=== PATIENT | male | born 1935 | race Caucasian/White ===

== ENCOUNTER 2017-01-12 16:26 | Emergency (ER) | payer OTHER ==
[2017-01-12 16:53] VITALS: BMI 21.7
--- NOTE | 2017-01-12 17:16 | PDOC ---
History of Present Illness - General Chief Complaint: Injury Stated Complaint: FALL Time Seen by Provider: 01/12/17 16:56 History Source: Family, Skilled Nursing Records Exam Limitations: Dementia - History of Present Illness Initial Comments: 01/12/17 17:11 81y M hx of htn, dementiam, unstead gait with frequent falls, psychosis presents sp witnessed fall per EMS as he was getting out of a wheel chair. No reported LOC. The pt has severe dementia and is unable to give much of a history , denies any pain currently to his head, n/v, vision changes, neck pain, chest pain, back pain. pt on ASA Past History - Past Medical History Allergies/Adverse Reactions: Allergies Allergy/AdvReac Type Severity Reaction Status Date / Time No Known Allergies Allergy Verified 01/12/17 16:45 Home Medications: Ambulatory Orders Acetaminophen [Tylenol] 650 mg PO Q6H PRN 01/12/17 Allopurinol [Zyloprim -] 100 mg PO BID 01/12/17 Aspirin [ASA -] 81 mg PO DAILY 01/12/17 Carbamazepine [Tegretol -] 200 mg PO Q12H 01/12/17 Cholecalciferol (Vitamin D3) [Vitamin D3] 2,000 unit PO DAILY 01/12/17 Clonazepam 2 mg PO DAILY 01/12/17 Haloperidol [Haldol -] 5 mg PO DAILY 01/12/17 Olanzapine [Zyprexa] 30 mg PO DAILY 01/12/17 Cardiac Disorders: Yes Dementia: Yes Psychiatric Problems: Yes (PSYCHOSIS) Seizures: Yes Other medical history: CHRONIC GOUT. REPEATED FALLS. - Psycho/Social/Smoking Cessation Hx Anxiety: No Suicidal Ideation: No Smoking History: Unknown if ever smoked Hx Alcohol Use: No Drug/Substance Use Hx: No Substance Use Type: None Review of Systems - Review of Systems Able to Perform ROS?: No *Physical Exam - Vital Signs Last Vital Signs Temp Pulse Resp BP Pulse Ox 98.1 F 91 H 18 116/82 98 01/12/17 16:35 01/12/17 16:35 01/12/17 16:35 01/12/17 16:35 01/12/17 16:35 - Physical Exam Comments: 01/12/17 17:15 GENERAL: The patient is awake, alert x 1 Nontoxic - in no acute distress. HEAD: Normocephalic, ~3cm laceration on posterior occiput without any crepitus, stepoff, active bleeding EYES: extraocular movements intact, sclera anicteric, conjunctiva clear. ENT: Normal voice, Moist mucous membranes. NECK: Normal range of motion, supple LUNGS: Breath sounds equal, clear to auscultation bilaterally. No wheezes, no rhonchi, no rales. HEART: Regular rate and rhythm, normal S1 and S2 without murmur, rub or gallop. ABDOMEN: Soft, nontender, normoactive bowel sounds. No guarding, no rebound. . No CVA tenderness EXTREMITIES: Normal range of motion, no edema. No clubbing or cyanosis. No cords, erythema, or tenderness. NEUROLOGICAL: No facial assymetry, Normal speech, confused SKIN: Warm, Dry, normal turgor, Back: No midline tenderness to the cervical, thoracic or lumbar spine Musculoskelatal: FROM of b/l shoulders, elbows, wrist. FROM of hips, knees, ankles - No signs of ecchymosis, erythema, or crepitus noted on palpation extremities, chest wall, clavicals, ribs, back. Procedures - Consent Consent obtained: Verbal - Laceration/Wound Repair Posterior Head Wound Length: 2.6 to 5.0 cm Wound Explored: clean Wound's Depth, Shape: superficial Irrigated w/ Saline: Yes Wound Repaired With: [place] Number of Sutures: 4 ED Treatment Course - RADIOLOGY Radiology Studies Ordered: Category Date Time Status HEAD CT WITHOUT CONTRAST [CT] Stat CT Scan 01/12/17 17:08 Ordered Medical Decision Making - Medical Decision Making 01/12/17 17:17 shubham r/o fx with cthead and cspine will close with jorje after CT head 01/12/17 18:[address] and cspine negative for acute process lac closed with 4 jorje per the pt had tetnaus recently will dc/ the pt back to the [place] returnp recautions were discussed I discussed the physical exam findings, ancillary test results and final diagnoses with the patient. I answered all of the patient's questions. The patient was satisfied with the care received and felt comfortable with the discharge plan and treatment plan. The patient will call their primary care physician within 24 hours to arrange follow-up and will return to the Emergency Department with any new, persistent or worsening symptoms. *DC/Admit/Observation/Transfer Diagnosis at time of Disposition: Laceration of head Qualifiers: Encounter type: initial encounter Location of open wound of head: scalp Foreign body presence: without foreign body Qualified Code(s): S01.01XA - Laceration without foreign body of scalp, initial encounter - Discharge Dispostion Disposition: [facility] F[facility] Condition at time of disposition: Stable Admit: No - Patient Instructions Printed Discharge Instructions: DI for Closed Head Injury, DI for Laceration Repair -- [facility] Additional Instructions: Return to the emergency department immediately with ANY new, persistent or worsening symptoms including any redness, bleeding, purulent discharge, swelling or other concerns. Keep the area clean and dry for 48 hours. Afterwards he may clean gently with soap and water. Apply bacitracin twice a day. Return in 10-14 days for suture removal. You MUST call and follow up with your doctor tomorrow for further evaluation of your symptoms. Results were discussed with you. Please make sure your doctor reviews the results of your emergency evaluation. Print Language: [place]
[2017-01-12] MEDS ORDERED: DIPHTH,PERTUSS(ACELL),TET VAC 0.5 ML VIAL IM ONE (17:50)
[2017-01-12 20:13] VITALS: BP 135/80; PULSE 87; TEMP 98.3
== END 2017-01-12 20:40 ==
LOC: JER 16:26
PROC: 3E0234Z Introduction of Serum, Toxoid and Vaccine into Muscle, Percutaneous Approach (ICD-10-PCS; principal; 2017-01-12)
PROC: 0HQ0XZZ Repair Scalp Skin, External Approach (ICD-10-PCS; 2017-01-12)
DX: S01.01XA Laceration without foreign body of scalp, initial encounter (principal); W05.0XXA Fall from non-moving wheelchair, initial encounter; Z91.81 History of falling; Y93.89 Activity, other specified; Y92.128 Other place in nursing home as the place of occurrence of the external cause; I10 Essential (primary) hypertension; F03.90 Unspecified dementia, unspecified severity, without behavioral disturbance, psychotic disturbance, mood disturbance, and anxiety; F28 Other psychotic disorder not due to a substance or known physiological condition; M10.9 Gout, unspecified; R26.81 Unsteadiness on feet
CPT/HCPCS: 12002-25; 70450-TC; 72125-TC; 90471; 90715; 99282-25

== ENCOUNTER 2017-05-29 21:38 | Emergency (ER) | payer OTHER, BC ==
--- NOTE | 2017-05-29 21:55 | PDOC ---
History of Present Illness - General Chief Complaint: Injury Stated Complaint: FALL Time Seen by Provider: 05/29/17 21:47 - History of Present Illness Initial Comments: 05/30/17 01:31 82M hx of htn, advanced dementia, unsteady gait with frequent falls and psychosis brought to the ED by EMS with a left upper forehead laceration after found on the floor of his assisted room following a fall head first. No witness to the fall. Patient reports no LOC. Past History - Past Medical History Allergies/Adverse Reactions: Allergies Allergy/AdvReac Type Severity Reaction Status Date / Time No Known Allergies Allergy Verified 05/29/17 22:29 Home Medications: Ambulatory Orders Acetaminophen [Tylenol] 650 mg PO Q6H PRN 01/12/17 Allopurinol [Zyloprim -] 100 mg PO BID 01/12/17 Carbamazepine [Tegretol -] 200 mg PO Q12H 01/12/17 Cholecalciferol (Vitamin D3) [Vitamin D3] 2,000 unit PO DAILY 01/12/17 Clonazepam 2 mg PO ASDIR 01/12/17 Haloperidol [Haldol -] 5 mg PO ASDIR 01/12/17 Olanzapine [Zyprexa] 15 mg PO ASDIR 01/12/17 Cardiac Disorders: Yes Dementia: Yes Psychiatric Problems: Yes (PSYCHOSIS) Seizures: Yes - Psycho/Social/Smoking Cessation Hx Anxiety: No Suicidal Ideation: No Smoking History: Unknown if ever smoked Hx Alcohol Use: No Drug/Substance Use Hx: No Substance Use Type: None Review of Systems - Review of Systems Able to Perform ROS?: No (Advanced dementia) *Physical Exam - Physical Exam General Appearance: Yes: Disheveled (patient looks spastic) Respiratory/Chest: positive: Lungs Clear, Normal Breath Sounds. negative: Respiratory Distress Cardiovascular: positive: Regular Rhythm, Regular Rate, S1, S2 Vascular Pulses: Dorsalis-Pedis (R): 2+, Doralis-Pedis (L): 2+ Gastrointestinal/Abdominal: positive: Normal Bowel Sounds, Flat, Soft Integumentary: positive: Normal Color, Dry, Warm, Other (2x 3.5-4.5cm lacerations on the upper frontal scalp) Neurologic: negative: Fully Oriented (Spastic neck and extremities) Procedures - Laceration/Wound Repair Left Upper Lateral Face Wound Length: 2.6 to 5.0 cm Wound Explored: clean, no foreign body present Wound's Depth, Shape: irregular Irrigated w/ Saline: Yes Anesthesia: 1% Lidocaine Wound Debrided: minimal Wound Repaired With: Sutures Suture Size/Type: 5:0 Number of Sutures: 7 Sterile Dressing Applied: Yes (+ bacitracin oitment) ED Treatment Course - LABORATORY CBC & Chemistry Diagram: 05/29/17 22:04 05/29/17 22:04 Medical Decision Making - Medical Decision Making 05/30/17 01:42 82M with pmh of dementia HTN, unsteady gait with hx of falls present with forhead laceration after fall. Patient evaluated for fall etiology with CBC, CMP and EKG. CT head and neck to r /o intracranial bleed/fracture, everything negative. LAceration repaired with 7 interrupted 5-0 suture points. Patient to be discharged back to assisted. Talked to Mrs Marly Li by phone to inform her with the plan. *DC/Admit/Observation/Transfer Diagnosis at time of Disposition: Laceration of head, Fall - Discharge Dispostion Condition at time of disposition: Good Admit: No
[2017-05-29 22:16] LABS: BASO % 0.5 % (0-2.0); EOS % 0.7 % (0-4.5); HEMATOCRIT 40.8 % (35.4-49); HEMOGLOBIN 13.7 GM/dL (11.7-16.9); LYMPH % 14.7 % (8-40); MCH 31.8 pg (25.7-33.7); MCHC 33.5 g/dl (32.0-35.9); MEAN CELL VOLUME 94.8 fl (80-96); MEAN PLT VOLUME 8.1 fl (7.5-11.1); MONO % 7.2 % (3.8-10.2); NEUT % 76.9 % (42.8-82.8); PLATELET COUNT 203 K/MM3 (134-434); RDW 14.7 % (11.9-15.9); WHITE BLOOD COUNT 6.5 K/mm3 (4.0-10.0)
[2017-05-29 22:20] VITALS: BP 121/55; PULSE 72; TEMP 97.6; BMI 23.8
[2017-05-29 22:42] LABS: ALBUMIN 3.4 g/dl (3.4-5.0); ANION GAP 6 (8-16); BILIRUBIN,TOTAL 0.3 mg/dL (0.2-1.0); BLOOD UREA NITROGEN 15 mg/dL (7-18); CALCIUM 9.3 mg/dL (8.5-10.1); CHLORIDE 103 mmol/L (98-107); CO2 31 mmol/L (21-32); CREATININE 0.9 mg/dL (0.7-1.3); GLUCOSE,RANDOM 87 mg/dL (74-106); POTASSIUM 4.6 mmol/L (3.5-5.1); SGOT/AST 20 U/L (15-37); SGPT/ALT 30 U/L (12-78); SODIUM 140 mmol/L (136-145); TOT PROT 6.8 g/dl (6.4-8.2)
[2017-05-29 22:43] LABS: ALK PHOS 132 U/L (45-117)
--- NOTE | 2017-05-30 01:04 | PDOC ---
Attending Attestation - Resident Resident Name: Brian Grayson - ED Attending Attestation I have performed the following: I have examined & evaluated the patient, The case was reviewed & discussed with the resident, I agree w/resident's findings & plan, Exceptions are as noted - HPI HPI: 05/30/17 00:59 This is an 82 yo M from [facility] who presents to the ER s/p unwitnessed fall with head trauma Pt sustained a laceration to the forehead No vomiting Pt is contracted Pt is unable to provide any additional history - Physicial Exam PE: 05/30/17 01:01 Left forehead laceration measuring 2cm (+) head turned to the left, contractures No abdominal tenderness No obvious deformities - Medical Decision Making 05/30/17 01:[address] Spine CT Laceration repair Pt is not taking anticoagulants Can be returned to [facility] as pt is not on anticoagulants
--- NOTE | 2017-05-30 13:48 | EKG ---
Test Reason : Blood Pressure : / mmHG Vent. Rate : 080 BPM Atrial Rate : 202 BPM P-R Int : 000 ms QRS Dur : 078 ms QT Int : 376 ms P-R-T Axes : 000 055 015 degrees QTc Int : 433 ms ATRIAL FIBRILLATION NONSPECIFIC T WAVE ABNORMALITY ABNORMAL ECG WHEN COMPARED WITH ECG OF 29-MAY-2017 23:40, NO SIGNIFICANT CHANGE WAS FOUND Confirmed by RAMONE BRIDGES MD ([id number]) on 05/30/2017 1:48:26 PM Referred By: Confirmed By:RAMONE BRIDGES MD
== END 2017-05-30 03:12 ==
LOC: JER 21:38
PROC: 0HQ1XZZ Repair Face Skin, External Approach (ICD-10-PCS; principal; 2017-05-29)
DX: S01.81XA Laceration without foreign body of other part of head, initial encounter (principal); W18.39XA Other fall on same level, initial encounter; Z91.81 History of falling; Y93.89 Activity, other specified; Y92.122 Bedroom in nursing home as the place of occurrence of the external cause; R26.81 Unsteadiness on feet; I10 Essential (primary) hypertension; F03.90 Unspecified dementia, unspecified severity, without behavioral disturbance, psychotic disturbance, mood disturbance, and anxiety
CPT/HCPCS: 12013; 36415; 70450-TC; 72125-TC; 80053; 85025; 93005; 93010; 99283-25

== ENCOUNTER 2017-08-30 21:47 | Emergency (ER) | payer OTHER, BC ==
--- NOTE | 2017-08-30 22:01 | PDOC ---
Attending Attestation - HPI HPI: 08/30/17 22:39 82 yo M from [facility] with a significant past medical history of advanced dementia and unsteady gait with frequent falls, who presents to the emergency department s/p mechanical fall from bed tonight. Pt sustained a laceration to the left upper forehead. As per spouse, pt is at baseline mental status with no new complaints. No F/C. No vomiting. Pt is unable to provide any additional history. - Physicial Exam PE: 08/30/17 23:15 GENERAL: Awake, (+) Pleasantly demented. in no acute distress HEAD: (+) 2 cm laceration to the left scalp with no active bleeding EYES: PERRLA, EOMI, sclera anicteric, conjunctiva clear ENT: Auricles normal inspection, nares patent, oropharynx clear without exudates. Moist mucosa NECK: Normal ROM, supple, no lymphadenopathy, JVD, or masses LUNGS: Breath sounds equal, clear to auscultation bilaterally. No wheezes, and no crackles HEART: (+) Irregularly irregular. normal S1 and S2, no murmurs, rubs or gallops ABDOMEN: Soft, nontender, normoactive bowel sounds. No guarding, no rebound. No masses EXTREMITIES: No edema. No clubbing or cyanosis. No cords, erythema, or tenderness NEUROLOGICAL: Cranial nerves II through XII grossly intact. SKIN: Warm, Dry, normal turgor, no rashes noted. <Trish Flynn - Last Filed: 08/30/17 23:15> - Resident Resident Name: Brian Grayson - ED Attending Attestation I have performed the following: I have examined & evaluated the patient, The case was reviewed & discussed with the resident, I agree w/resident's findings & plan, Exceptions are as noted - Medical Decision Making 08/30/17 22:01 I, Dr. Jody Lofton, DO, attest that this document has been prepared under my direction and personally reviewed by me in its entirety. I further attest, that it accurately reflects all work, treatment, procedures and medical decision -making performed by me. 08/30/17 22:47 a/p:82yo pleasantly demented male with closed head injury -mechanical fall out of bed -head laceration -hx of bleeding in the brain -head ct, c spine ct -laceration repair -family requesting to return to [place] 08/31/17 00:13 discussed head and c spine ct results with the patients . pt at baseline MS. Stable for d/c to home. Pt is DNR. Answered all quesitons. Tetanus is UTD. <Jody Lofton - Last Filed: 08/31/17 00:14> Discharge Disposition - Discharge Dispostion Admit: No <Jody Lofton - Last Filed: 08/31/17 00:14> - Diagnosis Fall, Laceration of head, Closed head injury - Discharge Dispostion Disposition: HOME Condition at time of disposition: Stable - Referrals Referrals: Aaron Mckoy MD [Primary Care Provider] - - Patient Instructions Printed Discharge Instructions: DI for Laceration Repair, DI for Closed Head Injury
[2017-08-30 22:07] VITALS: BP 174/90; PULSE 60; TEMP 97.4; BMI 25.7
--- NOTE | 2017-08-30 22:47 | PDOC ---
History of Present Illness - General Chief Complaint: Laceration Stated Complaint: LACERATION Time Seen by Provider: 08/30/17 21:52 History Source: Family, [facility] Records - History of Present Illness Initial Comments: 08/30/17 22:40 82M with A-fib (not on any anticoagulants) advanced alzheimer's disease, history of repeated falls, sent from [facility] for falling from bed during care, sustained a 2cm laceration to the left forhead with large amount of bleeding noted. Pressure dressing and cold compressed applied by [facility] staff with some noted effect. No change in mentation from baseline which is alert with confusion/forgetfulness. No LOC Patient currently on allopurinoL, Carbamazepine, clonazepam, haloperidol and zyprexa. Patient is non-ambulatory at baseline (wheelchair). Patient is DNR/DNI Regular consistency diet. 08/31/17 01:18 Past History - Past Medical History Allergies/Adverse Reactions: Allergies Allergy/AdvReac Type Severity Reaction Status Date / Time No Known Allergies Allergy Verified 08/30/17 21:58 Home Medications: Ambulatory Orders Acetaminophen [Tylenol] 650 mg PO Q6H PRN 01/12/17 Allopurinol [Zyloprim -] 100 mg PO BID 01/12/17 Carbamazepine [Tegretol -] 200 mg PO Q12H 01/12/17 Cholecalciferol (Vitamin D3) [Vitamin D3] 2,000 unit PO DAILY 01/12/17 Clonazepam 2 mg PO ASDIR 01/12/17 Haloperidol [Haldol -] 5 mg PO ASDIR 01/12/17 Olanzapine [Zyprexa] 15 mg PO ASDIR 01/12/17 Cardiac Disorders: Yes Dementia: Yes Psychiatric Problems: Yes (PSYCHOSIS) Seizures: Yes - Immunization History Immunization Up to Date: No - Suicide/Smoking/Psychosocial Hx Smoking History: Unknown if ever smoked Have you smoked in the past 12 months: No Information on smoking cessation initiated: No Hx Alcohol Use: No Drug/Substance Use Hx: No Substance Use Type: None Review of Systems - Review of Systems Able to Perform ROS?: No (Advanced dementia) *Physical Exam - Vital Signs Last Vital Signs Temp Pulse Resp BP Pulse Ox 97.4 F L 60 14 174/90 97 08/30/17 22:07 08/30/17 21:58 08/30/17 21:58 08/30/17 21:58 08/30/17 21:58 - Physical Exam General Appearance: Yes: Cachetic HEENT: positive: Other (2cm laceration on left anterior scalp. Patient responsive. Drooling.) Neck: positive: Trachea midline. negative: Tender Respiratory/Chest: positive: Lungs Clear, Normal Breath Sounds. negative: Chest Tender Cardiovascular: positive: Regular Rhythm, Regular Rate, S1, S2 Gastrointestinal/Abdominal: positive: Normal Bowel Sounds. negative: Tender Neurologic: positive: Confused, Depressed Affect. negative: Fully Oriented, Normal Mood/Affect Procedures - Consent Consent obtained: Verbal, From Patient, From Guardians - Laceration/Wound Repair Left Upper Anterior Head Wound Length: to 2.5 cm Wound Explored: clean, no foreign body present Wound's Depth, Shape: superficial, linear Irrigated w/ Saline: Yes Betadine Prep: No Anesthesia: 1% Lidocaine Wound Repaired With: Sutures Suture Size/Type: 6:0, 5:0, proline Number of Sutures: 4 ED Treatment Course - RADIOLOGY Radiology Studies Ordered: Category Date Time Status CERVICAL SPINE CT W/O CONTR [CT] Stat CT Scan 08/30/17 22:[address] WITHOUT CONTRAST [CT] Stat CT Scan 08/30/17 22:26 Ordered Medical Decision Making - Medical Decision Making 08/31/17 01:18 82M with A-fib (not on any anticoagulants) advanced alzheimer's disease, history of repeated falls, sent from [facility] for falling from bed during care, sustained a 2cm laceration to the left forhead. CT Head negative. Laceration sutured with 5-0 prolene x4 D/C and sent back to [facility] *DC/Admit/Observation/Transfer Diagnosis at time of Disposition: Fall, Laceration of head, Closed head injury - Discharge Dispostion [facility]position: [facility] Condition at time of disposition: Stable - Referrals Referrals: Aaron Mckoy MD [Primary Care Provider] - - Patient Instructions Printed Discharge Instructions: DI for Laceration Repair, DI for Closed Head Injury
== END 2017-08-31 02:17 ==
LOC: JER 21:47
PROC: 0HQ0XZZ Repair Scalp Skin, External Approach (ICD-10-PCS; principal; 2017-08-30)
DX: S01.01XA Laceration without foreign body of scalp, initial encounter (principal); W06.XXXA Fall from bed, initial encounter; Y93.89 Activity, other specified; Y92.122 Bedroom in nursing home as the place of occurrence of the external cause; G30.9 Alzheimer's disease, unspecified; F02.80 Dementia in other diseases classified elsewhere, unspecified severity, without behavioral disturbance, psychotic disturbance, mood disturbance, and anxiety; Z86.69 Personal history of other diseases of the nervous system and sense organs
CPT/HCPCS: 12001-25; 70450-TC; 72125-TC; 99282-25

== ENCOUNTER 2018-03-06 21:21 | Emergency (ER) | payer OTHER, BC ==
[2018-03-06 21:32] VITALS: BMI 24.4
--- NOTE | 2018-03-07 00:09 | PDOC ---
History of Present Illness - General Chief Complaint: Injury Stated Complaint: HEAD INJURY Time Seen by Provider: 03/06/18 22:02 History Source: EMS - History of Present Illness Initial Comments: 03/06/18 23:56 Patient is an 82-year-old male with history of gout, dementia brought in by EMS from the [place] [facility] on the [place] this evening. Report from EMS, patient was sitting on a wheelchair in front off the nurses station at the [place] [facility], when he tried to get out, tipped forward, falling hitting his left forehead. There was no LOC. Patient's history is limited due to dementia. PMD: Dr. Elizabeth Mckoy PMHX: as above PSOCHX: lives in a NH, DNR ALL: NKDA ROS limited due to dementia; GENERAL: [The patient is awake, in no acute distress.] HEAD: (+) signs of trauma (+) ecchymosis and swelling to the left forehead] EYES: [Pupils round and reactive to light, conjunctiva clear.] ENT: [Ears normal, nares patent, Moist mucous membranes.] NECK: [Normal range of motion, supple without lymphadenopathy, JVD, or masses.] LUNGS: [Breath sounds equal, clear to auscultation bilaterally. No wheezes, and no crackles.] HEART: [Regular rate and rhythm, normal S1 and S2 without murmur, rub.] ABDOMEN: [Soft, nontender, normoactive bowel sounds. No guarding, no rebound. No masses.] EXTREMITIES: contracted lower ext, no edema. erythema, or tenderness.] NEUROLOGICAL: dementia PSYCH: normal affect.] SKIN: [Warm, Dry, normal turgor, (+) skin tear to the left wrist, left lundberg. Past History - Past Medical History Allergies/Adverse Reactions: Allergies Allergy/AdvReac Type Severity Reaction Status Date / Time No Known Allergies Allergy Verified 03/06/18 21:32 Home Medications: Ambulatory Orders Allopurinol [Zyloprim -] 100 mg PO BID 01/12/17 Carbamazepine [Tegretol -] 200 mg PO Q12H 01/12/17 Cholecalciferol (Vitamin D3) [Vitamin D3] 2,000 unit PO DAILY 01/12/17 Clonazepam 0.5 mg PO ASDIR 01/12/17 Haloperidol [Haldol -] 5 mg PO ASDIR 01/12/17 Cardiac Disorders: Yes Dementia: Yes Psychiatric Problems: Yes (PSYCHOSIS) Seizures: Yes - Immunization History Immunization Up to Date: No - Suicide/Smoking/Psychosocial Hx Smoking History: Unknown if ever smoked Have you smoked in the past 12 months: No Information on smoking cessation initiated: No Hx Alcohol Use: No Drug/Substance Use Hx: No Substance Use Type: None *Physical Exam - Vital Signs Last Vital Signs Temp Pulse Resp BP Pulse Ox 98.6 F 72 16 133/82 97 03/06/18 21:25 03/06/18 21:25 03/06/18 21:25 03/06/18 21:25 03/06/18 21:25 ED Treatment Course - RADIOLOGY Radiology Studies Ordered: Category Date Time Status HEAD CT WITHOUT CONTRAST [CT] Stat CT Scan 03/06/18 21:47 Taken Medical Decision Making - Medical Decision Making 03/07/18 00:09 Patient is an 82-year-old male with history of gout, dementia brought in by EMS from the [place] [facility] on the [place] this evening with closed head injury will get ct head Patient Full Name: NIKC GARCIAS Patient Accession No: [id number] Patient : [id number] Reason for Exam: closed head injury Referring Physician: Patient Name: KATERINE ROMERO THIS IS A PRELIMINARY REPORT FROM [facility] DATE OF SERVICE: 2018-03-06 23:10:22 IMAGES: [id number] EXAM: HEAD CT WITHOUT CONTRAST HISTORY: Closed head Injury COMPARISON: None. FINDINGS: The ventricular system is midline and nondilated. There is moderate cortical atrophy and chronic small vessel ischemic disease. There is no bleed, mass, extra-axial fluid collection or mass effect. No skull fracture or skull lesion is identified. Small left mastoid effusion likely reflects mild mastoiditis. There is mucosal thickening and air-fluid level left maxillary sinus, likely reflecting sinusitis. There is also mild mucosal thickening in the right maxillary sinus. IMPRESSION: No acute traumatic pathology. Mild left mastoiditis. Left maxillary sinusitis. THIS DOCUMENT HAS BEEN ELECTRONICALLY SIGNED Brayden Schwartz MD 03/07/2018 00:06 RD MMine Please call Imaging [facility] [phone] ([phone]) with questions. INTERPRETING RADIOLOGIST: Hiram Schwartz MD Electronically Signed: Mar 07, 2018 12:09AM ED Patient given Augmentin 875mg to cover Mastoiditis, The NH called and spoke with RM for the patinet that hw will need further work up and Augmentin. I discussed the physical exam findings, ancillary test results and final diagnoses with the patient. I answered all of the patient's questions. The patient was satisfied with the care received and felt comfortable with the discharge plan and treatment plan. The Patient agrees to follow up with the primary care physician within 24-72 hours. *DC/Admit/Observation/Transfer Diagnosis at time of Disposition: Closed head injury Qualifiers: Encounter type: initial encounter Qualified Code(s): S09.90XA - Unspecified injury of head, initial encounter Contusion of forehead Qualifiers: Encounter type: initial encounter Qualified Code(s): S00.83XA - Contusion of other part of head, initial encounter Mastoiditis Qualifiers: Laterality: left Qualified Code(s): H70.92 - Unspecified mastoiditis, left ear - Discharge Dispostion Disposition: HOME Condition at time of disposition: Stable - Referrals - Patient Instructions Printed Discharge Instructions: DI for Contusion, DI for Closed Head Injury Additional Instructions: Your Discharge Instructions: You must call primary care physician within 24 hours to arrange follow-up. Return to the Emergency Department with any new, persistent or worsening symptoms, for fever, chills, SOB, dizziness or any other concerning changes that may occur. Patient needs to be on Augmentin 875 mg twice a day for 10 days. First dose was given in the emergency room. - Post Discharge Activity
[2018-03-07] MEDS ORDERED: AMOX TR/POT CLAV 875MG/125MG TABLETS (FP) PO ONE (00:17)
[2018-03-07] MEDS ORDERED: AMOX TR/POT CLAV 875MG/125MG TABLETS (FP) ONE (01:22)
[2018-03-07 01:30] VITALS: BP 117/61; PULSE 61; TEMP 97.2
== END 2018-03-07 01:59 | disposition home or self-care (01) ==
LOC: SUPCPDRO 21:21 → JER 21:21
DX: S00.83XA Contusion of other part of head, initial encounter (principal); H70.892 Other mastoiditis and related conditions, left ear; W05.0XXA Fall from non-moving wheelchair, initial encounter; Y93.89 Activity, other specified; Y92.128 Other place in nursing home as the place of occurrence of the external cause; Y99.8 Other external cause status; F03.90 Unspecified dementia, unspecified severity, without behavioral disturbance, psychotic disturbance, mood disturbance, and anxiety; M10.9 Gout, unspecified; F29 Unspecified psychosis not due to a substance or known physiological condition
CPT/HCPCS: 70450-TC; 99281-25